=== PATIENT | male | born 1995 | race Caucasian/White ===

== ENCOUNTER 2019-11-30 08:20 | Outpatient (CLI) | payer OTHER, SELFPAY ==
--- NOTE | 2019-11-30 08:32 | MR_ITS ---
WS: [id number] MRI RIGHT SHOULDER HISTORY: PAIN IN RIGHT SHOULDER COMPARISON: None available. TECHNIQUE: Multiplanar sequences of the shoulder joint are submitted. There is very slight hypertrophy of the AC joint with minimal encroachment upon the supraspinatus mus daren. No edema or fluid at the AC joint. No subacromial or subdeltoid fluid. There is a 2 mm area of increased signal in the very distal infraspinatus tendon. Indeterminate for t ear. There are adjacent subchondral cystic changes in the humeral head at the site of the infraspinat us attachment. There is no muscle atrophy or edema. No os acromion. Biceps tendon in normal position and signal. Labrum is normal. MR/MR shoulder RT wo con* [id number] IMPRESSION: 1. Minimal AC joint hypertrophy with no evidence for an acute injury to the cl avicle or AC joint. 2. Minimal subchondral cystic changes in the humeral head at the site of the i nfraspinatus attachment. Indeterminate for 2 mm infraspinatus tendon attachment tear. Cannot confirm tear as the increased signal is seen only on the sagittal T2 sequence.
== END 2019-11-30 08:21 | disposition home or self-care (01) ==
LOC: RADSHAW 08:27
PROVIDERS: Family Provider Family Medicine; PCP Nurse Practitioner; Visit Provider Nurse Practitioner
DX: M89.8X1 Other specified disorders of bone, shoulder (principal); M25.511 Pain in right shoulder
CPT/HCPCS: 73221

== ENCOUNTER → 2022-05-12 08:58 | Outpatient (BNVA) | payer OTHER, SELFPAY | PROVIDERS: Family Provider Family Medicine; Referring Provider Nurse Practitioner; Visit Provider Orthopaedic Surgery | DX: M25.511 Pain in right shoulder (principal); M19.011 Primary osteoarthritis, right shoulder | CPT/HCPCS: 73030; 99203 ==

== ENCOUNTER → 2022-12-16 10:42 | Outpatient (BNVA) | payer OTHER, SELFPAY | PROVIDERS: Family Provider Family Medicine; Referring Provider Nurse Practitioner; Visit Provider Orthopaedic Surgery | DX: M79.642 Pain in left hand (principal); M79.641 Pain in right hand | CPT/HCPCS: 99202 ==

== ENCOUNTER → 2025-07-13 10:58 | Outpatient (BNVA) | payer OTHER, SELFPAY | PROVIDERS: Family Provider Family Medicine; Visit Provider Student in an Organized Health Care Education/Training Program | DX: S66.127A Laceration of flexor muscle, fascia and tendon of left little finger at wrist and hand level, initial encounter (principal); W26.0XXA Contact with knife, initial encounter | CPT/HCPCS: 73130; 99203 ==

== ENCOUNTER → 2025-07-24 07:09 | Outpatient (BNVA) | payer OTHER, SELFPAY | PROVIDERS: Family Provider Family Medicine; Visit Provider Student in an Organized Health Care Education/Training Program | DX: S66.126A Laceration of flexor muscle, fascia and tendon of right little finger at wrist and hand level, initial encounter (principal); W26.0XXA Contact with knife, initial encounter | CPT/HCPCS: 99213 ==

== ENCOUNTER 2025-08-28 14:48 | Outpatient (RCR) | payer OTHER, SELFPAY | END 2025-09-02 23:59 | disposition home or self-care (01) | LOC: SOT 14:48 | PROVIDERS: Visit Provider Orthopaedic Surgery | DX: X58.XXXA Exposure to other specified factors, initial encounter (principal); S66.126A Laceration of flexor muscle, fascia and tendon of right little finger at wrist and hand level, initial encounter | CPT/HCPCS: 97110; 97165 ==

== ENCOUNTER 2025-09-03 05:00 | Outpatient (RCR) | payer OTHER, SELFPAY | END 2025-10-03 23:59 | disposition home or self-care (01) | LOC: SOT 05:00 | PROVIDERS: Visit Provider Orthopaedic Surgery | DX: S56.122A Laceration of flexor muscle, fascia and tendon of left index finger at forearm level, initial encounter (principal); X58.XXXA Exposure to other specified factors, initial encounter | CPT/HCPCS: 97022; 97035; 97110; 97140 ==

== ENCOUNTER → 2025-09-18 08:48 | Outpatient (BNVA) | payer OTHER, SELFPAY | PROVIDERS: PCP Nurse Practitioner; Visit Provider Student in an Organized Health Care Education/Training Program | DX: S69.91XD Unspecified injury of right wrist, hand and finger(s), subsequent encounter (principal); S66.126D Laceration of flexor muscle, fascia and tendon of right little finger at wrist and hand level, subsequent encounter; X58.XXXD Exposure to other specified factors, subsequent encounter | CPT/HCPCS: 99213 ==